=== PATIENT | female | born 1945 | race Caucasian/White ===

== ENCOUNTER → 2020-11-10 | Outpatient (CLI) | payer MEDICARE ==
[2020-11-10 11:52] LABS: African American GFR (CKD) >90 (>60 ml/min/1.73 sqM); Blood Urea Nitrogen 15 mg/dL (7-17); Non-African American GFR(CKD) >90 (>60 ml/min/1.73 sqM)
--- NOTE | 2020-11-10 12:33 | CT ---
EXAMINATION TYPE: CT angio chest DATE OF EXAM: 11/10/2020 12:22 PM COMPARISON: None. HISTORY: elevated d dimer CT DLP: 497 mGycm Automated exposure control for dose reduction was used. CONTRAST: CTA scan of the thorax is performed with IV Contrast, patient injected with 100 mL of Isovue 370, pul monary embolism protocol. MIP images are created and reviewed. FINDINGS: LUNGS: Mild to moderate biapical pleural/parenchymal scarring. No suspicious nodules or masses. No ashley spicious focal consolidation. No pleural effusion or pneumothorax seen bilaterally. MEDIASTINUM: There is satisfactory enhancement of the pulmonary artery and its branches, there is no CT evidence for pulmonary embolism. There are prominent bilateral hilar lymph nodes. Slightly enlar ged 1.4 x 1.3 cm subcarinal lymph node axial image 65. No cardiomegaly. Moderate right atrial dilatat ion. No pericardial effusion is seen. OTHER: Mild multilevel spurring in the spine. IMPRESSION: No CT evidence for acute pulmonary embolism. No suspicious acute pulmonary process.
== END | disposition home or self-care (01) ==
LOC: RADCTMAIN 11:10
PROVIDERS: ATTEND Nurse Practitioner Family
DX: R79.89 Other specified abnormal findings of blood chemistry (principal)
CPT/HCPCS: 82565; 84520; 71275; 36415; Q9967

== ENCOUNTER 2022-06-01 08:43 | Day surgery (SDC) | payer MEDICARE ==
[~2022-06-01 08:43] MED LIST: ALPRAZolam 0.25 MG TAB PO PRN; ALPRAZolam 0.5 MG TAB PO PRN; ASPIRIN 325 MG TAB PO ONE; NITROGLYCERIN SL TABS 0.4 MG TAB SUBLINGUAL PRN; SODIUM CHLORIDE 0.9% 1,000 ML in EMPTY BAG 1 BAG IV SCH
[2022-06-01] MEDS ORDERED: ASPIRIN 81 MG ONE (08:56)
[2022-06-01 09:17] VITALS: RESP 18; TEMP 98.1
[2022-06-01] MEDS ORDERED: HEPARIN SODIUM 1,000 UN/ML (10ML VL) ONE (11:26)
[2022-06-01] MEDS ORDERED: LIDOCAINE 1% INJ 10MG/ML (30 ML VIAL-PF) SQ ONE (11:50)
[2022-06-01] MEDS ORDERED: MIDAZOLAM 2 MG/2 ML VIAL IV ONE ×2 (11:50→12:11)
[2022-06-01] MEDS ORDERED: HEPARIN SODIUM 1,000 UN/ML (10ML VL) IV ONE (12:11)
[2022-06-01] MEDS ORDERED: IOPAMIDOL-250 100ML BTL IV ONE (12:20)
[2022-06-01] MEDS ORDERED: NALOXONE 0.4 MG/ML 1 ML VIAL IVP PRN (12:24)
[2022-06-01] MEDS ORDERED: SODIUM CHLORIDE 0.9% 1,000 ML in EMPTY BAG 1 BAG IV SCH (12:30)
--- NOTE | 2022-06-01 12:36 | P.PCN ---
Date of Procedure: 06/01/22 Operative Findings: INTRAVASCULAR ULTRASOUND AND ANGIOGRAM OF THE FEMORAL AND ILIAC VENOUS SYSTEMS OF THE LEFT LEG PERFORMING PHYSICIAN: Geovany Rios MD PROCEDURE PERFORMED: 1. Intravascular ultrasound and angiogram of the left common iliac and external iliac and common femoral vein and inferior vena cava 2. Ultrasound-guided access of the left common femoral vein INDICATION: Nonhealing venous ulcer involving the medial aspect of the left foot. The patient underwent an echo and that showed normal systolic end-diastolic function of the heart and no evidence of any pulmonary hypertension and normal intracardiac valves. Also she underwent lower extremities venous duplex study and that came in to be unremarkable for DVT. In the light of that because the ulcer involving the left side with decided to rule out May Pyle syndrome COMPLICATION: None LEVEL OF SEDATION: Moderate was sedation length of 31 minutes APPROACH: Right common femoral artery PROCEDURE DESCRIPTION: After obtaining informed consent and explaining the procedure benefits, risks, and complications, the patient was brought to the cardiac lab instructor. The left common femoral vein was cannulated using micropuncture technique under ultrasound guidance, the micropuncture wire passed easily then I placed an 8- Serbian 11 cm sheath in the left common femoral vein. At that point the patient was given 2000 use of heparin IV. I did advanced an [address] way to the inferior vena cava. Then I did advanced all 35 intravascular ultrasound catheter over the 035 wire to the inferior vena cava and then manually the catheter was pulled down into the common iliac vein and external iliac vein and common femoral vein. We did an intravascular ultrasound measurements as below. Finally I did an angiogram with injection of contrast through the sheath. The procedure was completed without any complications The procedure was completed and there was no complications. 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
[2022-06-01 16:03] VITALS: BP 104/57; PULSE 71
--- NOTE | 2022-06-02 13:09 | IR ---
EXAMINATION TYPE: IR venogram lower ext LT DATE OF EXAM: 06/01/2022 COMPARISON: NONE HISTORY: Fluoroscopy time. Fluoroscopy was provided to the referring clinician.
== END 2022-06-01 16:35 | disposition home or self-care (01) ==
LOC: CATHCVL 08:43
PROVIDERS: ATTEND Internal Medicine Interventional Cardiology
DX: I70.229 Atherosclerosis of native arteries of extremities with rest pain, unspecified extremity (principal)
CPT/HCPCS: 36005; 75820; 76937; 37252; C1769 ×5; C1894 ×2; C1753; C1760; J2250; J2001; J1644; Q9966

== ENCOUNTER 2023-02-08 07:03 | Day surgery (SDC) | payer MEDICARE ==
[~2023-02-08 07:03] MED LIST changes: -ALPRAZolam 0.25 MG TAB PO PRN; -ALPRAZolam 0.5 MG TAB PO PRN; -ASPIRIN 325 MG TAB PO ONE; -NITROGLYCERIN SL TABS 0.4 MG TAB SUBLINGUAL PRN; +SODIUM CHLORIDE 0.9% 1,000 ML in EMPTY BAG 1 BAG IV ONE; -SODIUM CHLORIDE 0.9% 1,000 ML in EMPTY BAG 1 BAG IV SCH
[2023-02-08] MEDS ORDERED: LIDOCAINE 1% INJ 10MG/ML (20 ML MDV) SQ ONE (09:51)
[2023-02-08] MEDS ORDERED: MIDAZOLAM 2 MG/2 ML VIAL IVP ONE ×2 (09:51→10:38)
[2023-02-08] MEDS: HEPARIN SODIUM 1,000 UN/ML (10ML VL) IV ONE ×2 (09:59→10:18)
[2023-02-08] MEDS ORDERED: NALOXONE 0.4 MG/ML 1 ML VIAL IVP PRN (10:48)
[2023-02-08] MEDS ORDERED: SODIUM CHLORIDE 0.9% 1,000 ML in EMPTY BAG 1 BAG IV SCH (11:00)
[2023-02-08] MEDS ORDERED: IOPAMIDOL-370 100ML BTL INJ ONE (11:00)
[2023-02-08] MEDS ORDERED: CLOPIDOGREL 75 MG TAB PO ONE (11:02)
--- NOTE | 2023-02-08 11:42 | IR ---
EXAMINATION TYPE: IR stent intravas non coronary DATE OF EXAM: 02/08/2023 COMPARISON: NONE HISTORY: Fluoroscopy time. Fluoroscopy was provided to the referring clinician.
[2023-02-08] MEDS ORDERED: ONDANSETRON 4 MG/2 ML VIAL ONE (13:10)
--- NOTE | 2023-02-08 14:03 | P.PCN ---
Date of Procedure: 02/08/23 Operative Findings: Percutaneous peripheral venous intervention Performing physician Geovany Rios MD Procedure performed 1. An angiogram of bilateral iliac veins and inferior vena cava 2. Intravascular ultrasound of bilateral iliac veins and inferior vena cava 3. Successful stenting of the right and left iliac veins 4. 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 She underwent in the past and angiogram and intravascular ultrasound of the left and right iliac vein and that showed severe stenosis involving the left iliac vein. In the light of that and because she remains symptomatic on conservative medical approach she was brought to undergo balloon angioplasty and stenting Approach Right and left common femoral vein Complication None Level of sedation Moderate sedation length of 54 minutes Procedure description After obtaining an informed consent the patient was brought to the cardiac medical laboratory technologist. The right common and left common femoral veins were cannulated using micropuncture technique under ultrasound guidance the micropuncture wire passed easily then I placed 28-Czech sheath. Subsequently anticoagulation was initiated using heparin with continuous ACT monitoring. Subsequently I did the wire both iliac veins and I advanced the wire all the way to the IVC and that was an 035 long wire. After that I did intravascular ultrasound measurements of both the IVC as well as bilateral common and bilateral external iliac veins. The measurement will be dictated as well during this report. Subsequently after finding out severe stenosis involving the left common iliac vein by the ostium and right external iliac vein we decided to pursue alone angioplasty and stenting. We did stenting using 16 mm x 140 Zilver Vena balloon expandable stents. Both stents were positioned under fluoroscopy guidance and deployed under fluoroscopy guidance. Postdilatation was performed on the right using 14 mm balloon and on the left using 16 mm balloon. Please note that before we deployed the stent we did intravascular ultrasound again to localize the lesions and the area of deployment as well. The procedure was completed with no complication. Intravascular imaging measurements The IVC was 2 73 mm The right common iliac artery area stenosis was 0% The left common iliac artery area stenosis was 51% The right external iliac artery area stenosis was 72% The left external iliac artery area stenosis was 0% Postprocedure management The patient to be monitored Standard groin care Manual compression with sheath removal Follow-up with the patient
[2023-02-08] MEDS: ACETAMINOPHEN TAB 325 MG TAB PO PRN (21:19)
[2023-02-09] MEDS: ACETAMINOPHEN TAB 325 MG TAB PO PRN (02:25)
[2023-02-09 08:54] VITALS: RESP 17; TEMP 97.9
[2023-02-09 09:51] LABS: African American GFR (CKD) >90 (>60 ml/min/1.73 sqM); Anion Gap 7 mmol/L; Blood Urea Nitrogen 8 mg/dL (7-17); Calcium 9.6 mg/dL (8.4-10.2); Carbon Dioxide 30 mmol/L (22-30); Chloride 104 mmol/L (98-107); Glucose 89 mg/dL (74-99); Non-African American GFR(CKD) >90 (>60 ml/min/1.73 sqM); Potassium 3.9 mmol/L (3.5-5.1); Sodium 141 mmol/L (137-145)
--- NOTE | 2023-02-09 10:52 | P.DS ---
Providers Attending physician: Geovany Rios Primary care physician: Carlita Mistry [facility] Hospital Course: The patient is a pleasant 77-year-old female patient who underwent yesterday successful stenting of the bilateral iliac veins with a good results and with no complication from right and left groin approach. She was seen and evaluated this morning. Both groins are soft and nontender was no bruises. The patient is going to be discharged home on antiplatelet and I will follow-up with the patient next week in the office also she does have follow-up with Dr. Queen Plan - Discharge Summary Discharge Rx Participant: No New Discharge Prescriptions: No Action Multivitamins, Thera [Multivitamin (formulary)] 1 tab PO DAILY Aspirin [Adult Low Dose Aspirin EC] 81 mg PO DAILY Discharge Medication List Aspirin [Adult Low Dose Aspirin EC] 81 mg PO DAILY 01/31/23 [History] Multivitamins, Thera [Multivitamin (formulary)] 1 tab PO DAILY 01/31/23 [History] Follow up Appointment(s)/Referral(s): Geovany Rios MD [STAFF PHYSICIAN] - 1 Week (APPOINTMENT MADE ON January @ 11:15AM ) Patient Instructions/Handouts: Peripheral Vascular Disease (ED), Moderate Sedation (DC) Activity/Diet/Wound Care/Special Instructions: *NO LIFTING, PUSHING, OR PULLING ANYTHING OVER 5 POUNS FOR 5 DAYS *NO DRIVING FOR 3 DAYS *YOU CAN REMOVE YOUR DRESSING AND SHOWER TOMORROW BUT DO NOT SUBMERSE YOUR PUNCTURE SITE IN WATER FOR A FEW DAYS TO PREVENT INFECTION - SO NO TUB BATHS, POOLS, HOT TUBS, DISHES...ETC *ANY SIGNS OF BLEEDING (HARDNESS, SWELLING, OR EXCESSIVE BRUISING) HOLD DIRECT PRESSURE ON YOUR PUNCTURE SITE AND COME TO THE NEAREST EMERGENCY ROOM TO GET YOUR PUNCTURE SITE LOOKED AT - DO NOT DRIVE YOURSELF! EITHER CALL EMS OR HAVE SOMEONE DRIVE YOU!
[2023-02-09 11:23] VITALS: BP 117/64; PULSE 60
== END 2023-02-09 11:39 | disposition home or self-care (01) ==
LOC: CATHCVL 07:03 → 3SCARD 10:45 → CATHCVL 02-09 11:39
PROVIDERS: ATTEND Internal Medicine Interventional Cardiology
DX: I82.422 Acute embolism and thrombosis of left iliac vein (principal); I70.298 Other atherosclerosis of native arteries of extremities, other extremity; Z79.899 Other long term (current) drug therapy
CPT/HCPCS: 80048; 37238; 37239; 37252; 37253; C1769 ×4; C1894; C1753; C1725; J2250; J2405; J2001; J1644; Q9967